=== PATIENT | female | born 1955 | race Caucasian/White ===

== ENCOUNTER → 2018-12-07 09:58 | Outpatient (CLI) | payer OTHER, SELFPAY | PROVIDERS: Visit Provider Physician Assistant | DX: R30.0 Dysuria (principal) | CPT/HCPCS: 87086 ==

== ENCOUNTER 2024-05-13 12:46 | Emergency (ER) | payer OTHER, SELFPAY ==
[2024-05-13 12:50] VITALS: BP 137/73; PULSE 54; RESP 14; TEMP 36.1; O2SAT 100; BMI 24.2
--- NOTE | 2024-05-13 13:02 | PC.NURSE ---
Pt refused EKG
--- NOTE | 2024-05-13 13:38 | PC.NURSE ---
patient having cold like symptoms for 1 week. last 3-4 days she has not been getting better. She flew yesterday from [place]. she denies sob but does state the she has been having a sore right throat and pain in her right ear. she also has a slight cough and headache and is also dizzy. He ear canals are clear. She has been saying her voice has been lost but she is able to speak in full sentences. She has been taking over the counter medicine with some relief. She can tolerate po fluids and food.
--- NOTE | 2024-05-13 14:01 | ED_ITS ---
HPI - Dizziness General Chief Complaint: Dizziness Stated Complaint: dizzy, ear pain, nausea Time Seen by Provider: 05/13/24 13:54 Mode of arrival: Ambulatory History of Present Illness HPI Narrative: Patient is a 68-year-old female history of breast cancer currently on Arimidex presenting today with upper respiratory like symptoms. Reports that she has had slight cough for about 1 week now she is really having some pain with swallowing sore throat radiating up into her right ear. She flew here from [place]. Denies any fever. She has had all of her vaccinations. Denies any worsening cough chest pain or shortness of breath. She reports she was drinking fluids she felt a little lightheaded today but did not pass out. She reports no chest pain or palpitations. Related Data Home Medications Medication Instructions Recorded Confirmed anastrozole [Arimidex] PO 12/07/18 12/07/18 calcium acetate PO 12/07/18 12/07/18 cholecalciferol (vitamin D3) PO 12/07/18 12/07/18 duloxetine 20 mg capsule,delayed 40 mg PO DAILY 12/07/18 12/07/18 release (Cymbalta) multivitamin with iron-mineral PO 12/07/18 12/07/18 omega-3 fatty acids 1,000 mg 1,000 mg PO DAILY 12/07/18 12/07/18 capsule (Fish Oil Concentrate) tumeric PO 12/07/18 12/07/18 Previous Rx's Medication Instructions Recorded azithromycin 250 mg tablet See Rx Instructions PO .COMPLEX #6 05/13/24 tabs Allergies Allergy/AdvReac Type Severity Reaction Status Date / Time citalopram [From Celexa] Allergy Severe sodium Verified 12/07/18 09:55 drops, siezures acetaminophen [From Vicodin] Allergy Mild rash all Verified 12/07/18 09:55 over hydrocodone [From Vicodin] Allergy Mild rash all Verified 12/07/18 09:55 over Patient History Social History Smoking Status: Never smoker Smoking Status: Never smoker Exam Initial Vital Signs Initial Vital Signs: Vital Signs Temperature 97.0 F L 05/13/24 12:50 Pulse Rate 54 L 05/13/24 12:50 Respiratory Rate 14 05/13/24 12:50 Blood Pressure 137/73 05/13/24 12:50 Pulse Oximetry 100 05/13/24 12:50 Oxygen Delivery Method Room Air 05/13/24 12:50 GENERAL: Alert well-appearing 68-year-old female HEENT: Head atraumatic,EOMI, pupils reactive, face symmetric, moist mucous membranes PHARYNX: No uvula swelling no deviation no significant erythema swallowing okay maintaining secretions EARS: Both ears did not have any fluid behind the membrane CARDIOVASCULAR: Regular rate and rhythm without murmurs, rubs or gallops. RESPIRATORY: Breath sounds equal bilaterally, no wheezes rales or rhonchi. ABDOMEN: Soft, nontender. Normoactive bowel sounds all 4 quadrants. No guarding or rebound. EXTREMITIES: Normal range of motion, no clubbing or edema. Neurovascularly intact NEUROLOGICAL: Alert and oriented x4.Normal gait and speech SKIN: Warm, dry, no laceration, no petechiae, no rashes or lesions. Course Orders Ordered: ED Orders 05/13/24 12:56 EKG-12 Lead Stat 05/13/24 14:25 Covid-19 + FLU A/B + RSV - PCR Stat Strep Grp A by PCR Rapid Stat Throat Culture Stat Vital Signs Vital signs: Vital Signs - 8 hr 05/13/24 12:50 05/13/24 15:37 Temperature 97.0 F L Pulse Rate 54 L 60 Respiratory Rate 14 14 Blood Pressure 137/73 150/72 H Pulse Oximetry 100 100 Oxygen Delivery Method Room Air Room Air MDM - Dizziness Lab Data Labs: Lab Results 05/13/24 Range/Units 14:25 SARS-CoV-2 (PCR) Negative (Negative) Influenza A (RT-PCR) Flu a negative (NEGATIVE) Influenza B (RT-PCR) Flu b negative (NEGATIVE) RSV (PCR) Negative (Negative) Group A Strep (PCR) Negative (Negative) MDM Narrative Medical decision making narrative: Patient is 68-year-old female history of breast cancer presenting today with upper respiratory like symptoms. She has a mild laryngitis sore throat ear pain. Mild headaches got a cough. Lung sounds are clear throat is non erythematous. Strep and viral panel are negative. However patient has been having ongoing symptoms for at least 7 days not getting any significantly better seems reasonable to start on a Z-Greg. Discharge Plan Departure Patient Disposition: Home Clinical Impression: Atypical pneumonia Instructions: Atypical Pneumonia Activity Restrictions/Additional Instructions: *You have been diagnosed with atypical pneumonia *What to do: At this time increase fluids take [id number] medication as needed *Continue to take medications as directed Azithromycin take as directed *Follow up with your primary care provider in 2-3 days or call [phone] *Return to ER if you should have increasing shortness of breath not tolerating fluids worsening sore throat or any new, worsening or concerning symptoms Prescriptions: New azithromycin 250 mg tablet See Rx Instructions PO .COMPLEX Qty: 6 0RF Rx Instructions: For 250 mg dose pack: take 500 mg today (day 1), then 250 mg for 4 days (days 2-5) No Action anastrozole PO duloxetine [Cymbalta] 20 mg capsule,delayed release(DR/EC) 40 mg PO DAILY omega-3 fatty acids [Fish Oil Concentrate] 1,000 mg capsule 1,000 mg PO DAILY tumeric PO calcium acetate PO multivitamin with iron-mineral PO cholecalciferol (vitamin D3) PO Stand Alone Forms: Patient Portal/API/Survey
[2024-05-13 14:50] LABS: Strep Grp A by PCR Rapid Negative (Negative)
[2024-05-13 15:11] LABS: Influenza A - CEPHEID Flu A NEGATIVE (NEGATIVE); Influenza B - CEPHEID Flu B NEGATIVE (NEGATIVE); Respiratory Syncytial Virus Negative (Negative)
[2024-05-13 15:16] LABS: COVID-19 CEPHEID 4-PLEX PCR Negative (Negative)
[2024-05-13 15:37] VITALS: BP 150/72; PULSE 60; RESP 14; O2SAT 100
== END 2024-05-13 15:40 | disposition home or self-care (01) ==
PROVIDERS: Emergency Provider Emergency Medicine
DX: J18.9 Pneumonia, unspecified organism (principal); J02.9 Acute pharyngitis, unspecified; R42 Dizziness and giddiness
CPT/HCPCS: 0241U; 87070; 87651; 99281; 99282